=== PATIENT | male | born 1960 | race Caucasian/White ===

== ENCOUNTER 2017-12-18 16:02 | Emergency (ER) | payer BC ==
[~2017-12-18] VITALS: Ht 175.2 cm; Wt 117.9 kg
[~2017-12-18 16:02] MED LIST: B12,B-12,B 12500 MC1 PO; BACTRIM DS 8001 TAB PO; HYDROCHLOROTHIA25 M1 PO; KEFLEX500 MG PO; NEXIUM20 MG PO; NORVASC5 MG PO; PROCARDIA10 MG PO
== END 2017-12-18 17:33 | disposition home or self-care (01) ==
LOC: ED 16:02
DX: R04.0 Epistaxis (principal); Z98.890 Other specified postprocedural states; Z87.442 Personal history of urinary calculi; Z79.899 Other long term (current) drug therapy